=== PATIENT | male | born 1995 | race Two or more races ===

== ENCOUNTER 2017-01-04 13:17 | Emergency (ER) | payer SELFPAY ==
[~2017-01-04] VITALS: Ht 162.6 cm; Wt 68.0 kg
[~2017-01-04 13:17] MED LIST: CEPHALEXIN500 MG ORAL; TYLENOL EXTRA500 MG ORAL
[2017-01-04 13:25] VITALS: BP 128/75
[2017-01-04] MEDS ORDERED: Lidocaine 1% MPF 10mg/ml 5ml ONE (13:36)
[2017-01-04] MEDS ORDERED: Bacitracin Oint UD TOPIC ONE (13:45)
[2017-01-04] MEDS ORDERED: Lidocaine 1% MPF 10mg/ml 5ml IM ONE (13:45)
[2017-01-04] MEDS ORDERED: BACITRACIN1 APPLIC TOPIC (14:30)
[2017-01-04] MEDS ORDERED: IBUPROFEN600 MG ORAL (14:30)
[2017-01-04] MEDS ORDERED: TRAMADOL HCL50 MG ORAL (14:30)
[2017-01-04 14:44] VITALS: BP 151/79
--- NOTE | 2017-01-04 14:53 | Emergency Room Report ---
History of Present Illness General Chief Complaint: Skin Rash/Abscess Source: Patient Present Illness HPI The patient is a 21-year-old male presenting with left first toe pain. The patient states that this began one week prior. Patient describes a 05/20 the servin and does not radiate. The patient denies any known injury to the toe and thinks this may be due to an ingrown nail. Pt denies this happening in the past. Pain worse with touch and walking. The patient denies any other symptoms including N, V, F, chills, rash Allergies: Coded Allergies: No Known Allergies (Unverified , 05/11/15) Patient History Past Medical History: see triage record Pertinent Family History: none Reviewed Nursing Documentation: PMH: Agreed, PSxH: Agreed Nursing Documentation-PMH Past Medical History: No Stated History Review of Systems All Other Systems: negative except mentioned in HPI Physical Exam Vital Signs Date Time Temp Pulse Resp B/P Pulse Ox O2 Delivery O2 Flow Rate FiO2 01/04/17 13:25 98.4 84 16 128/75 98 Room Air Sp02 EP Interpretation: reviewed, normal General Appearance: no apparent distress, alert, GCS 15, non-toxic Head: normocephalic, atraumatic Eyes: bilateral eye PERRL, bilateral eye normal inspection ENT: hearing grossly normal, normal pharynx, no angioedema, normal voice Neck: full range of motion, supple/symm/no masses Respiratory: chest non-tender, lungs clear, normal breath sounds, speaking full sentences Cardiovascular #1: regular rate, rhythm, no edema Musculoskeletal: back normal, gait/station normal, normal range of motion, tender - TTP over L 1st toe medial nailfold Neurologic: alert, oriented x3, responsive, motor strength/tone normal, sensory intact, normal gait, speech normal Psychiatric: judgement/insight normal, memory normal, mood/affect normal, no suicidal/homicidal ideation Skin: normal color, no rash, warm/dry, well hydrated Lymphatic: no adenopathy Procedures Additional Procedure Procedure Narrative Partial toenail removal: L 1st digit. Digital block was placed using 4mL of 1% lidocaine w/o epi. Area cleaned with betadine. Straight forceps and scissors used to remove and cut away medial portion of nail. Minimal bleeding controlled. Area again cleaned with NS and betadine. Bacitracin placed and wrapped with sterile dressing. Medical Decision Making PA Attestation is my supervising physician. Patient management was discussed with my supervising physician Diagnostic Impression: Primary Impression: Ingrown toenail ER Course The patient is a 21-year-old male presenting with left toe pain Differential diagnosis considered: ingrown toenail, Felon, paronychia, sprain PE: Vitals WNL. NAD L big toe: The nail extends into the medial nailfold. TTP. No DX or bleeding. No fluctuance. SILT, Full AROM. Partial toenail removal: Digital block was placed using 4mL of 1% lidocaine w/o epi. Area cleaned with betadine. Straight forceps and scissors used to remove and cut away medial portion of nail. Minimal bleeding controlled. Area again cleaned with NS and betadine. Bacitracin placed and wrapped with sterile dressing. [facility] and bacitracin. ER precautions given Last Vital Signs Date Time Temp Pulse Resp B/P Pulse Ox O2 Delivery O2 Flow Rate FiO2 01/04/17 14:44 77 18 151/79 98 Room Air 01/04/17 13:25 98.4 Status: improved Disposition: HOME, SELF-CARE Condition: Improved Scripts Tramadol Hcl* (ULTRAM*) 50 Mg Tablet 50 MG ORAL Q6H Y for For Pain, #8 TAB 0 Refills Prov: ZOANSKYLER P.A. 01/04/17 Ibuprofen* (MOTRIN*) 600 Mg Tablet 600 MG ORAL Q8H Y for For Pain, #30 TAB 0 Refills Prov: TERZIAN,SKYLER P.A. 01/04/17 Bacitracin (Bacitracin Zinc) 15 Gm Oint...g. 1 APPLIC TOPIC TID, #15 GM Prov: ZOANSKYLER P.A. 01/04/17 Patient Instructions: Ingrown Toenail Additional Instructions: I discussed my findings with the patient. All questions and concerns have been answered. Treatment and medication compliance have been addressed. I advised the patient that they need to follow up with PMD in 3-5 days. Return to ED if symptoms worsen, new symptoms arise, or if needed for any reason. Patient verbalized understanding of discharge instructions. SKYLER MELTON Jan 04, 2017 14:53
== END 2017-01-04 14:46 | disposition home or self-care (01) ==
LOC: EMR 13:40
DX: L60.0 Ingrowing nail (principal)

== ENCOUNTER 2017-01-09 16:41 | Emergency (ER) | payer SELFPAY ==
[~2017-01-09] VITALS: Ht 160 cm; Wt 74.8 kg
[~2017-01-09 16:41] MED LIST changes: +BACITRACIN1 APPLIC TOPIC; +IBUPROFEN600 MG ORAL; +TRAMADOL HCL50 MG ORAL
[2017-01-09 17:16] VITALS: BP 129/85
[2017-01-09] MEDS ORDERED: NKM (17:16)
--- NOTE | 2017-01-09 18:14 | Emergency Room Report ---
History of Present Illness General Chief Complaint: General Complaint Source: Patient Present Illness HPI 21-year-old male presents emergency department complaining of 7/10 pain localized to the left great toe in addition to mild erythema and swelling status post ingrown toenail removal last week here in the emergency department. Patient reports that he took medications as prescribed. Patient is here for reevaluation. He denies new injury or trauma patient denies discharge from the toe. Denies numbness tingling or loss of sensation or gross motor movements of the extremities, incontinence of bowel or bladder. Denies CP, Palpitations, LOC , AMS, dizziness, Changes in Vision, Sensation, paresthesias, or a sudden severe headache. Allergies: Coded Allergies: No Known Allergies (Unverified , 05/11/15) Patient History Past Medical History: see triage record Past Surgical History: none Pertinent Family History: none Immunizations: UTD Reviewed Nursing Documentation: PMH: Agreed, PSxH: Agreed Nursing Documentation-PMH Past Medical History: No Stated History Review of Systems All Other Systems: negative except mentioned in HPI Physical Exam Vital Signs Date Time Temp Pulse Resp B/P Pulse Ox O2 Delivery O2 Flow Rate FiO2 01/09/17 17:10 99.0 84 16 129/85 98 Room Air Sp02 EP Interpretation: reviewed, normal General Appearance: no apparent distress, alert, GCS 15, non-toxic Head: normocephalic, atraumatic Eyes: bilateral eye PERRL, bilateral eye normal inspection ENT: hearing grossly normal, normal pharynx, no angioedema, normal voice Neck: full range of motion, supple/symm/no masses Respiratory: chest non-tender, lungs clear, normal breath sounds, speaking full sentences Cardiovascular #1: regular rate, rhythm, no edema, normal capillary refill Gastrointestinal: normal bowel sounds, non tender, soft, no guarding, no rebound Rectal: deferred Genitourinary: normal inspection, no CVA tenderness Musculoskeletal: back normal, gait/station normal, normal range of motion, no calf tenderness, tender - ttp to distal left great toe about the cuticle Neurologic: alert, oriented x3, responsive, motor strength/tone normal, sensory intact, speech normal Psychiatric: judgement/insight normal, memory normal, mood/affect normal, no suicidal/homicidal ideation Skin: normal color, no rash, warm/dry, well hydrated, other - previously removed left ingrown toe nail with mild erythema, and swelling. Lymphatic: no adenopathy Medical Decision Making PA Attestation Dr. Alarcon is my supervising Physician whom patient management has been discussed with. Diagnostic Impression: Primary Impression: Encounter for wound re-check ER Course 21-year-old male presents emergency department complaining of 7/10 pain localized to the left great toe in addition to mild erythema and swelling status post ingrown toenail removal last week here in the emergency department. Patient reports that he took medications as prescribed. Patient is here for reevaluation. He denies new injury or trauma patient denies discharge from the toe. Ddx considered but are not limited to cellulitis, abscess, Vital signs: are WNL, pt. is afebrile H&PE are most consistent with previously removed left ingrown toe nail with mild erythema, and swelling. Review of this patient's records show that he has not prescribed oral antibiotics he was only prescribed medications for pain. Patient's presentation is suspicious for mild soft tissue infection. No areas of fluctuance noted. ORDERS: none required at this time, the diagnosis is clinical ED INTERVENTIONS: -wound examined d/w pt. to take po abx and to look for signs of progression of infection. Pt is stable for close outpatient follow up recommended follow up with hand scraper. DISCHARGE: At this time pt. is stable for d/c to home. Will provide printed patient care instructions, and any necessary prescriptions. Care plan and follow up instructions have been discussed with the patient prior to discharge. Last Vital Signs Date Time Temp Pulse Resp B/P Pulse Ox O2 Delivery O2 Flow Rate FiO2 01/09/17 17:16 99.0 84 16 129/85 98 Room Air Disposition: HOME, SELF-CARE Condition: Stable Scripts Ibuprofen* (MOTRIN*) 600 Mg Tablet 600 MG ORAL THREE TIMES A DAY, #30 TAB 0 Refills Prov: Milka Ochoa P.A. 01/09/17 Hydrocodone Bit/Acetaminophen 5-325* (NORCO 5-325*) 1 Each Tablet 1 TAB ORAL Q6H Y for For Pain, #9 TAB 0 Refills Prov: Milka Ochoa P.A. 01/09/17 Doxycycline Hyclate* (VIBRAMYCIN*) 100 Mg Capsule 100 MG ORAL EVERY 12 HOURS, #14 CAP 0 Refills Prov: Milka Ochoa P.A. 01/09/17 Referrals: NOT CHOSEN IPA/MD,REFERRING (PCP) Patient Instructions: Venessa Burch Additional Instructions: Take medications as directed. Follow up with PCP in 3-5 days Return sooner to ED if new symptoms occur, or current symptoms become worse. Do not drink alcohol, drive, or operate heavy machinery while taking Renovo as this may cause drowsiness. - Please note that this Emergency Department Report was dictated using [employer] technology software, occasionally this can lead to erroneous entry secondary to interpretation by the dictation equipment. Milka Ochoa Jan 09, 2017 18:14
[2017-01-09] MEDS ORDERED: IBUPROFEN600 MG ORAL (18:15)
[2017-01-09] MEDS ORDERED: NORCO 5-325 TA1 EACH ORAL (18:15)
[2017-01-09] MEDS ORDERED: VIBRAMYCIN100 MG ORAL (18:15)
[2017-01-09 18:35] VITALS: BP 128/83
== END 2017-01-09 18:40 | disposition home or self-care (01) ==
LOC: EMR 17:45
DX: M79.675 Pain in left toe(s) (principal); Z48.01 Encounter for change or removal of surgical wound dressing
CPT/HCPCS: 99284